=== PATIENT | male | born 1950 | race Caucasian/White ===

== ENCOUNTER 2024-07-19 16:26 | Inpatient (IN) | payer OTHER, MEDICAID ==
[~2024-07-19] VITALS: Ht 175.3 cm; Wt 124.3 kg
[2024-07-19 17:00] LABS: BASOPHILS # (AUTO) 0.1 K/uL (0.0-0.2); BASOPHILS % (AUTO) 0.6 % (0.0-2.0); EOSINOPHILS # (AUTO) 0.2 K/uL (0.0-0.7); EOSINOPHILS % (AUTO) 1.9 % (0.0-6.0); HEMATOCRIT 38 % (39-51); HEMOGLOBIN 12.8 g/dL (13.5-17.5); LYMPHOCYTES # (AUTO) 2.6 K/uL (0.8-4.8); LYMPHOCYTES % (AUTO) 24.7 % (20.0-44.0); MEAN CORPUSCULAR HEMOGLOBIN 30 PG (26.0-33.0); MEAN CORPUSCULAR HGB CONC 34 g/dl (31.0-36.0); MEAN CORPUSCULAR VOLUME 88 fL (80-96); MONOCYTES # (AUTO) 0.8 K/uL (0.1-1.30); MONOCYTES % (AUTO) 7.8 % (2.0-12.0); NEUTROPHILS # (AUTO) 6.8 K/uL (1.8-8.9); PLATELET COUNT (AUTO) 307 K/uL (150-450); RED BLOOD CELL COUNT(AUTO) 4.31 MIL/uL (4.5-6.0); RED CELL DISTRIBUTION WIDTH 14.7 % (11.5-15.0); WHITE BLOOD COUNT (AUTO) 10.5 K/uL (4.3-11.0)
[2024-07-19] MEDS ORDERED: METOPROLOL TARTRATE INJ 5 MG/5 ML AMPUL ONE (17:06)
[2024-07-19] MEDS ORDERED: METOPROLOL SUCCINATE 25 MG TAB.SR.24H ONE (17:06)
[2024-07-19] MEDS: METOPROLOL TARTRATE INJ 5 MG/5 ML AMPUL IV ONE (17:14)
[2024-07-19] MEDS: METOPROLOL SUCCINATE 25 MG TAB.SR.24H PO SCH (17:14)
[2024-07-19 17:17] LABS: CALCIUM, SERUM 9.1 mg/dL (8.5-10.1); CARBON DIOXIDE 28 mmol/L (21-32); CHLORIDE 101 mmol/L (98-107); CREATININE 1.3 mg/dL (0.6-1.3); GLUCOSE 147 mg/dL (74-106); POTASSIUM 4.3 mmol/L (3.5-5.1); SODIUM SERUM 140 mmol/L (136-145); UREA NITROGEN, BLOOD 29 mg/dL (7-18)
[2024-07-19] MEDS ORDERED: IOHEXOL-350 100 ML VIAL IV ONE (17:24)
[2024-07-19] MEDS ORDERED: IV NS 0.9% 250 ML IV ONE (17:25)
[2024-07-19 17:30] LABS: ALANINE AMINOTRANSFERASE 23 U/L (12-78); ALBUMIN 3.2 g/dL (3.4-5.0); ALKALINE PHOSPHATASE 76 U/L (46-116); ASPARTATE AMINOTRANSFERASE 15 U/L (15-37); BILIRUBIN,DIRECT 0.2 mg/dL (0.0-0.2); BILIRUBIN,TOTAL 0.5 mg/dL (0.2-1.0); NT-PRO BNP 2635 pg/mL (0-125); TOTAL PROTEIN, SERUM 7.5 g/dL (6.4-8.2)
[2024-07-19] MEDS: FUROSEMIDE 40 MG/4 ML VIAL IV ONE (18:24)
[2024-07-19] MEDS ORDERED: ATOR80TA PO (20:40)
[2024-07-19] MEDS ORDERED: LISI20TA30 PO (20:40)
[2024-07-19] MEDS ORDERED: METF-442 PO (20:40)
[2024-07-19 21:00] VITALS: BP 134/74; TEMP 97.9; O2SAT 96
[2024-07-19] MEDS ORDERED: ONDANSETRON HCL/PF 4 MG/2 ML VIAL IV PRN (22:00)
[2024-07-19] MEDS ORDERED: MORPHINE SULFATE INJ 2 MG/ML DISP.SYRIN IV PRN (22:00)
[2024-07-19] MEDS ORDERED: MORPHINE SULFATE INJ 4 MG/ML DISP.SYRIN IM PRN (22:00)
[2024-07-19] MEDS: ACETAMINOPHEN 325 MG TABLET PO PRN (22:39)
[2024-07-19 23:10] VITALS: BP 134/74; TEMP 97.9; O2SAT 96
[2024-07-20 04:00] VITALS: BP 133/89; TEMP 98.1; O2SAT 93
[2024-07-20] MEDS ORDERED: MORPHINE SULFATE INJ 4 MG/ML DISP.SYRIN IV PRN (06:00)
[2024-07-20 07:00] VITALS: BP 132/100; TEMP 98.7; O2SAT 94
[2024-07-20 07:01] LABS: BASOPHILS % (AUTO) 0.5 % (0.0-2.0); EOSINOPHILS # (AUTO) 0.1 K/uL (0.0-0.7); EOSINOPHILS % (AUTO) 1.7 % (0.0-6.0); HEMATOCRIT 37 % (39-51); HEMOGLOBIN 12.6 g/dL (13.5-17.5); LYMPHOCYTES # (AUTO) 2.6 K/uL (0.8-4.8); MEAN CORPUSCULAR HEMOGLOBIN 30 PG (26.0-33.0); MEAN CORPUSCULAR HGB CONC 34 g/dl (31.0-36.0); MEAN CORPUSCULAR VOLUME 86 fL (80-96); MONOCYTES # (AUTO) 0.7 K/uL (0.1-1.30); MONOCYTES % (AUTO) 8.5 % (2.0-12.0); NEUTROPHILS # (AUTO) 5.1 K/uL (1.8-8.9); NEUTROPHILS % (AUTO) 59.3 % (43.0-81.0); PLATELET COUNT (AUTO) 293 K/uL (150-450); RED BLOOD CELL COUNT(AUTO) 4.26 MIL/uL (4.5-6.0); RED CELL DISTRIBUTION WIDTH 14.7 % (11.5-15.0); WHITE BLOOD COUNT (AUTO) 8.6 K/uL (4.3-11.0)
[2024-07-20 07:10] LABS: CALCIUM, SERUM 8.7 mg/dL (8.5-10.1); POTASSIUM 3.7 mmol/L (3.5-5.1)
[2024-07-20 07:32] LABS: THYROID STIMULATING HORMONE 3.29 uIU/mL (0.358-3.74)
[2024-07-20] MEDS ORDERED: METOPROLOL SUCCINATE 25 MG TAB.SR.24H PO SCH ×2 (09:00→17:00)
[2024-07-20 10:19] VITALS: BP 134/100
[2024-07-20] MEDS: METOPROLOL SUCCINATE 25 MG TAB.SR.24H PO SCH (10:19)
[2024-07-20 11:07] VITALS: TEMP 98.2; O2SAT 94
[2024-07-20] MEDS ORDERED: APIXABAN 5 MG TABLET PO SCH (17:00)
[2024-07-20] MEDS ORDERED: METFORMIN 500 MG TABLET PO SCH (17:00)
[2024-07-20 18:17] LABS: APPEARANCE,URINE CLEAR (CLEAR); BILIRUBIN,URINE NEGATIVE (NEGATIVE); BLOOD, URINE 2+ Ery/uL (NEGATIVE); COLOR,URINE YELLOW (YELLOW); KETONES,URINE NEGATIVE (NEGATIVE); LEUKOCYTE ESTERASE ,URINE 1+ (NEGATIVE); NITRITE, URINE NEGATIVE (NEGATIVE); PH,URINE 5.5 (5.0-8.0); PROTEIN,URINE 2+ mg/dl (NEGATIVE); UGLUCOSE NEGATIVE (NEGATIVE); UROBILINOGEN,URINE 0.2 EU/dL (0.2)
[2024-07-20 18:30] LABS: ADD URINE CULTURE YES; BACTERIA,URINE Few /HPF (None Seen); SQUAMOUS EPITHELIAL CELL,UR Rare /HPF (None Seen); URINE AMORPHOUS URATE Few /HPF (None Seen)
[2024-07-20] MEDS ORDERED: ENOXAPARIN SODIUM 120 MG/0.8 ML DISP.SYRIN SQ SCH (22:30)
[2024-07-21] MEDS ORDERED: ATORVASTATIN 40 MG TABLET PO SCH (09:00)
== END 2024-07-20 10:45 | disposition left against medical advice (07) | DRG 309 ==
LOC: ER 16:33 → TELE 20:34
PROVIDERS: ADMIT Internal Medicine; ATTEND Internal Medicine
DX: I48.91 Unspecified atrial fibrillation (principal); Z68.41 Body mass index [BMI] 40.0-44.9, adult; E11.9 Type 2 diabetes mellitus without complications; I10 Essential (primary) hypertension; Z79.899 Other long term (current) drug therapy; E78.5 Hyperlipidemia, unspecified; E66.9 Obesity, unspecified; N40.1 Benign prostatic hyperplasia with lower urinary tract symptoms; R33.8 Other retention of urine; E78.00 Pure hypercholesterolemia, unspecified; Z53.29 Procedure and treatment not carried out because of patient's decision for other reasons; R21 Rash and other nonspecific skin eruption; Z79.84 Long term (current) use of oral hypoglycemic drugs
CPT/HCPCS: 36415; 71045-TC; 80048-TC; 80061-TC; 80076-TC; 81001; 83880; 84439-TC; 84443-TC; 84481; 84484-TC; 85025-TC; 87081-TC; G0378; J1940; J3490; J7050; Q9967